=== PATIENT | male | born 1960 ===

== ENCOUNTER 2025-04-27 06:00 | Day surgery (SDC) | payer OTHER, MEDICARE, SELFPAY ==
[2025-04-27] VITALS (13 sets, daily range): BP systolic 102–132; BP diastolic 62–88; BMI 28.6
[2025-04-27] MEDS: CELEBREX 200 MG PO (07:13)
[2025-04-27] MEDS: METHOCARBAMOL 1500 MG PO (07:14)
[2025-04-27] MEDS: NORMOSOL-R/PLASMALYTE-A 1000 IV (07:15)
[2025-04-27] MEDS: TYLENOL 650 MG PO (07:17)
[2025-04-27] MEDS: LYRICA 150 MG PO (07:17)
[2025-04-27 07:49] LABS: ALT (SGPT) 26 U/L (0-50); AST (SGOT) 16 U/L (17-59); Albumin 4.1 g/dl (3.5-5.0); Alkaline Phosphatase 72 U/L (38-126); Total Bilirubin 0.5 mg/dl (0.2-1.3); Total Protein 6.4 g/dl (6.3-8.2)
[2025-04-27] MEDS: DILAUDID 0.5 MG IV ×2 (09:53→10:10)
[2025-04-27] MEDS: ROXICODONE 5 MG PO (11:18)
[2025-04-27] MEDS: ZOFRAN 4 MG IV (12:53)
== END 2025-04-27 14:00 | disposition home or self-care (01) ==
LOC: SDS 06:00
PROVIDERS: ATTENDING PHYSICIAN Orthopaedic Surgery Orthopaedic Surgery of the Spine; FAMILY PHYSICIAN Family Medicine
DX: M48.061 Spinal stenosis, lumbar region without neurogenic claudication (principal); M51.26 Other intervertebral disc displacement, lumbar region
CPT/HCPCS: 63030; 63035; 72020; 80076; 87070